=== PATIENT | female | born 1970 | race Caucasian/White ===

== ENCOUNTER 2023-06-20 18:22 | Emergency (ER) | payer OTHER, SELFPAY ==
--- NOTE | ~2023-06-20 | XR_ITS ---
EXAM: XR shoulder RT min 2V DATE: 06/20/2023 20:43 HISTORY: PAIN STARTED SUNDAY AND IS GETTING WORSE . COMPARISON: None available. FINDINGS: Normal mineralization. No fracture or dislocation. No lytic or blastic lesion. Mild polyar ticular osteoarthritis. No erosion or periosteal change. Soft tissues within normal limits. IMPRESSION: No acute osseous finding in the right shoulder. Reviewed, dictated and finalized at location [facility]. 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
--- NOTE | ~2023-06-20 | CT_ITS ---
Clinical Indication: Chest pain CT Scan of the Chest with Contrast: Technique: Contiguous sections were acquired throughout the chest after intravenous administration of 100 cc of Omnipaque 350. Dose reduction technique was used on this scan by utilizing automated expos ure control and iterative reconstruction technique. The dose-length product (DLP) was 767.91 mGy-cm. Findings: There is no evidence of any significant mediastinal, hilar or axillary lymphadenopathy. There is no f illing defect in the pulmonary arterial tree to suggest pulmonary embolus. There is no evidence of ao rtic dissection or aneurysm. There is no evidence of pleural or pericardial effusion. The lungs are clear, aside from calcified left lower lobe granulomas. Images through the upper abdomen reveal no abnormalities. Impression: No evidence of pulmonary embolus, aortic dissection, or aortic aneurysm. No significant pulmonary abnormality. Reviewed, dictated and finalized at [facility]. [employer]IONIST TELEPHONE OPERATOR Impression: No evidence of pulmonary embolus, aortic dissection, or aortic aneurysm. No significant pulmonary abnormality.
[2023-06-20 18:32] VITALS: BP 151/78; PULSE 57; RESP 16; TEMP 36.2; O2SAT 100
--- NOTE | 2023-06-20 18:36 | ECG_ITS ---
Measurements Intervals [place] Rate: 62 P: 49 KS: 172 QRS: 6 QRSD: 86 T: 3 QT: 373 QTc: 381 Interpretive Statements SINUS RHYTHM NORMAL ECG NO PREVIOUS ECG AVAILABLE FOR COMPARISON Electronically Signed On 06-21-2023 6:41:[address] by Yobany Sharma D.O.
[2023-06-20 19:24] LABS: Basophils Absolute Auto 0.1 K/mm3 (0.0-0.1); Basophils Percent Auto 0.9 % (0.2-1.2); Eosinophils Absolute Auto 0.3 K/mm3 (0-0.3); Eosinophils Percent Auto 4.1 % (0-4.4); Hematocrit 43.3 % (37.0-47.0); Hemoglobin 14.1 g/dL (12.0-15.0); Immature Granulocyte Absolute 0.02 K/mm3 (0.00-0.031); Immature Granulocyte Percent A 0.3 % (0-0.5); Lymphocytes Absolute Auto 3.03 K/mm3 (0.9-3.2); Lymphocytes Percent Auto 40.3 % (18.3-44.2); Mean Corpuscular HGB Conc 32.6 g/dl (32-36); Mean Corpuscular Hemoglobin 29.6 pg (26-34); Mean Platelet Volume 9.7 fl (7.4-10.4); Monocytes Absolute Auto 0.5 K/mm3 (0.1-0.6); Monocytes Percent Auto 6.9 % (2.6-8.5); Neutrophils Absolute Auto 3.6 K/mm3 (1.3-6.7); Neutrophils Percent Auto 47.5 % (45.5-73.1); Platelet Count Result 307 k/mm3 (150-375); Red Blood Count 4.76 M/mm3 (4.2-5.4); White Blood Count 7.5 K/mm3 (4.5-10.0)
[2023-06-20 19:35] LABS: Appearance Urine Clear (Clear); Bacteria Urine 1+ /hpf; Bilirubin Urine Negative (Negative); Blood Urine Negative (Negative); Color Urine Yellow (Yellow); Glucose Urine UA Negative (Negative); Ketones Urine Negative (Negative); Leukocyte Esterase Ur Trace LEU/UL (Negative); Need Manual Microscopic Reviewed; Nitrate Urine Negative (Negative); Non Pathogenic Casts 0-2; Protein Urine Negative (Negative); RBC Urine 0-2 /hpf (0-2); Specific Grav Ur 1.003 (1.001-1.035); Squamous Epithelial Cell Urine Occasional /hpf (Few); Urobilinogen Urine 0.2 mg/dL (<2.0); pH Urine 6.5 (5.0-9.0)
[2023-06-20 19:36] LABS: Add Urine Microscopic? YES
[2023-06-20 19:43] LABS: Alanine Aminotransferase 29 U/L (6-35); Albumin Level 4.6 g/dL (3.5-5.1); Alkaline Phosphatase 99 U/L (38-126); Anion Gap 11 mmol/L (8-16); Aspartate Amino Transferase 25 U/L (14-36); Bilirubin,Total 0.7 mg/dL (0.2-1.3); Blood Urea Nitrogen 11 mg/dL (7-17); Calcium 10.5 mg/dL (8.4-10.2); Carbon Dioxide 27 mmol/L (22-30); Chloride 100 mmol/L (98-107); Estimated CRCL calculation 98 ml/min; Estimated Glomerular Filt Rate > 60; Glucose 92 mg/dL (65-110); Lipase 117 U/L (23-300); Potassium 4.1 mmol/L (3.4-5.0); Sodium 138 mmol/L (137-145)
[2023-06-20 19:54] LABS: Troponin I < 0.012 ng/mL (0.000-0.034)
[2023-06-20 20:37] VITALS: BP 147/97; PULSE 77; O2SAT 99
--- NOTE | 2023-06-20 23:18 | ED.UPPEXIN ---
HPI - Extremity Injury (Upper) General Chief Complaint: Extremity Injury, Upper Stated Complaint: right shoulder pain Time Seen by Provider: 06/20/23 22:15 History of Present Illness HPI narrative: 52-year-old female reports for evaluation for intermittent right shoulder pain for the past few days. Patient states the pain starts in her proximal right shoulder and radiates into the anterior part of her right upper chest and posterior right upper back. States the pain only occurs with movement of her right arm and when the pain occurs she feels short of breath. States is likely she keeps her arm still she does not experience any pain or shortness of breath. She denies known injury or trauma, neck pain, fever abdominal pain, vomiting. Reports taking ibuprofen with some improvement. Patient states she is worried that she has a blood clot in her lungs. She denies paresthesias or radiating pain down her arm. Related Data Allergies Allergy/AdvReac Type Severity Reaction Status Date / Time No Known Allergies Allergy Verified 06/20/23 23:19 Review of Systems Review of Systems: CONSTITUTIONAL: Denies fever, chills, or sweats. EYES: Denies visual changes, redness, or discharge. ENT: Denies rhinorrhea, congestion, sore throat, or otalgia. CARDIOVASCULAR: See HPI RESPIRATORY: See HPI GASTROINTESTINAL: Denies abdominal pain, nausea, vomiting, or diarrhea. GENITOURINARY: Denies dysuria or hematuria. SKIN: Denies rash or itching. MUSCULOSKELETAL: See HPI NEUROLOGIC: Denies headache, numbness, or weakness. PSYCHIATRIC: Denies anxiety or depression. Exam Narrative: GENERAL: Well-appearing, well-nourished, and in no acute distress. Patient resting comfortably in exam bed. She is pleasant and conversational. HEAD: Normocephalic, atraumatic. ENT: Nares clear, no rhinorrhea or epistaxis. Mucous membranes moist. NECK: Supple. No midline cervical spinous tenderness, step-offs or deformities. CHEST: Clear to auscultation. No respiratory distress. HEART: Regular rate and rhythm. No murmur heard. Normal peripheral pulses. ABDOMEN: Soft, nontender, nondistended, normal active bowel sounds. EXTREMITIES: RUE: No tenderness to shoulder or remainder of upper extremity. Tenderness to the right upper back. No tenderness to chest wall. No overlying skin changes. Full active and passive range of motion of shoulder. Negative empty can and lift-off test. Strength 5/5 in right upper extremity. Sensation intact throughout. Radial pulse 2+. Cap refill less than 2. Shoulder is warm and without erythema. SKIN: Warm, dry, no rash. NEURO: No focal deficits. Alert and oriented x3 Course Vital Signs Vital signs: Vital Signs Temperature 97.2 F L 06/20/23 18:32 Pulse Rate 57 L 06/20/23 18:32 Respiratory Rate 16 06/20/23 18:32 Blood Pressure 151/78 H 06/20/23 18:32 Pulse Oximetry 100 06/20/23 18:32 Oxygen Delivery Room Air 06/20/23 18:32 Temperature 97.2 F L 06/20/23 18:32 Pulse Rate 78 06/21/23 00:20 Respiratory Rate 17 06/21/23 00:20 Blood Pressure 148/95 H 06/21/23 00:20 Pulse Oximetry 97 06/21/23 00:20 Oxygen Delivery Room Air 06/20/23 18:32 MDM - Extremity Injury (Upper) MDM Narrative Medical decision making narrative: 52-year-old female reports for evaluation for intermittent right shoulder pain that radiates to her chest and back for the past 2 days. See HPI for further history. Vitals significant for mildly elevated blood pressure otherwise unremarkable. She is well-appearing on exam. Exam significant for the above. CBC chemistries unremarkable. Urinalysis with wbc's. She has had having urinary symptoms, we will panculture. Lipase normal. Shoulder x-ray shows no acute abnormalities. Troponin normal. EKG shows no ischemic changes. Patient concerned for a PE therefore CTA obtained which shows no evidence of PE or acute cardiopulmonary process. She received Flexeril, Tylenol and lidocaine
[2023-06-20] MEDS: CYCLOBENZAPRINE HCL 10 MG TABLET PO (23:20)
[2023-06-20] MEDS: ACETAMINOPHEN 500 MG TABLET 1000 MG PO (23:20)
[2023-06-20] MEDS: LIDOCAINE 5% PATCH 1 PATCH TRANSDERM (23:25)
--- NOTE | 2023-06-20 23:36 | PC.NURSE ---
Assumed care of pt from MICHAEL Akins at this time.
[2023-06-21 00:20] VITALS: BP 148/95; PULSE 78; RESP 17; O2SAT 97
== END 2023-06-21 02:53 | disposition home or self-care (01) ==
PROVIDERS: Emergency Medicine; Emergency Provider Physician Assistant; PCP Family Medicine
DX: M25.511 Pain in right shoulder (principal)
CPT/HCPCS: 36415; 71275; 73030; 80053; 81001; 83690; 84484; 85025; 87086; 87088; 93005; 99284; A9270; Q9967